=== PATIENT | male | born 1990 | race Caucasian/White ===

== ENCOUNTER 2023-09-04 14:15 | Outpatient (CLI) | payer OTHER ==
[2023-09-04 21:24] LABS: H. PYLORIS ANTIGEN STL NEGATIVE (Negative)
== END 2023-09-04 14:30 | disposition home or self-care (01) ==
LOC: LAB.N 14:15
PROVIDERS: ATTEND Family Medicine
DX: R10.13 Epigastric pain (principal)
CPT/HCPCS: 87338